=== PATIENT | female | born 1975 | race Caucasian/White ===

== ENCOUNTER 2017-05-29 19:31 | Emergency (ER) | payer MEDICAID ==
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
[2017-05-29 19:46] VITALS: BP 120/85; PULSE 75; RESP 16; TEMP 98.1; O2SAT 96
== END 2017-05-29 20:13 | disposition home or self-care (01) ==
LOC: EDUNIT#
DX: Z02.89 Encounter for other administrative examinations (principal)